=== PATIENT | male | born 1975 | race Two or more races ===

== ENCOUNTER 2017-10-14 20:00 | Emergency (ER) | payer MEDICAID, OTHER ==
[~2017-10-14] VITALS: Ht 172.7 cm; Wt 97.9 kg
[2017-10-14 20:07] VITALS: BP 147/89
[2017-10-14] MEDS ORDERED: PENI250T2 PO (20:29)
[2017-10-14] MEDS ORDERED: TRAM50TA2 PO (20:29)
[2017-10-14] MEDS ORDERED: HYDROcodone/acetaminophen 10/325mg tab PO ONE (20:30)
== END 2017-10-14 20:41 | disposition home or self-care (01) ==
LOC: ER 20:01
DX: K08.89 Other specified disorders of teeth and supporting structures (principal); Z88.6 Allergy status to analgesic agent; Z79.899 Other long term (current) drug therapy
CPT/HCPCS: 99283